=== PATIENT | female | born 1985 | race Caucasian/White ===

== ENCOUNTER 2016-12-13 14:44 | Inpatient (IN) | payer BC ==
[2016-12-13] VITALS (15 sets, daily range): BP systolic 110–134; BP diastolic 69–82; PULSE 64–73; RESP 16–17; TEMP 99.8
[~2016-12-13 14:44] MED LIST: PREN29TA PO
[2016-12-13] MEDS ORDERED: LIDOCAINE HCL 1% 50 ML VIAL ONE (14:48)
[2016-12-13] MEDS ORDERED: DOCUSATE SODIUM 50 MG/SENNA 8.6 MG TAB PO PRN (15:00)
[2016-12-13] MEDS ORDERED: ZOLPIDEM TARTRATE 5 MG TAB PO PRN (15:00)
[2016-12-13] MEDS ORDERED: oxyCODONE/ACETAMINOPHEN 5 MG/325 MG TAB PO PRN (15:00)
[2016-12-13] MEDS ORDERED: WITCH HAZEL 50%/GLYCERIN 12.5% 40 PAD JAR TOPICAL PRN (15:00)
[2016-12-13] MEDS ORDERED: ACETAMINOPHEN 325 MG TAB PO PRN (15:00)
[2016-12-13] MEDS ORDERED: ONDANSETRON ODT 4 MG TAB PO PRN (15:00)
[2016-12-13] MEDS ORDERED: BENZOCAINE 20% TOPICAL SPRAY 60 ML CAN TOPICAL PRN (15:00)
[2016-12-13] MEDS ORDERED: ALUMINUM/MAGNESIUM/SIMETH 30 ML CUP PO PRN (15:00)
--- NOTE | 2016-12-13 15:00 | PD ---
HPI Chief Complaint 'i'm in labor" Date Seen: Dec 13, 2016 Time Seen: 14:30 (Filipe Baltazar MD R2) Travel History International Travel<30 Days: No Contact w/Intl Traveler<30Days: No (Filipe Baltazar MD) History of Present Illness HPI 31 year old G2 (now P2) at 40/3 weeks gestation delivered precipitously in the parking lot in front of the [facility]. Received call from her that she may be delivering at about 1425. OB team rushed to the parking lot with precipitous delivery cart. Mother was laid down in supine position in back of car. Head was presenting with membranes intact. Membranes ruptured artificially. Baby delivered after one push. There was a nuchal cord X1. Baby was delivered through the cord as it could not be reduced. Cord was clamped and cut. Cord blood collected. Baby responded to stimulation and was suctioned. Baby handed to the nursery team who transported baby to the nursery. Mother was transported to the OB floor. Pitocin 10 units IM given just after delivery. No major bleeding present. On OB floor, after 4 mg morphine IM, vaginal canal explored for lacerations. 1st degree laceration noted on posterior vaginal wall. Repaired with 3-0 Vicryl with interrupted sutures X3. Mother's pain now well controlled, vitals stable. Of note, mother is GBS negative with good care and normal labs. Delivery performed by Dr. Johnson, with Dr. Rhoda Orozco and Dr. Baltazar assisting ( Filipe Baltazar MD R2) History Past Medical History Narrative Medical None (Filipe Baltazar MD R2) Obstetric History Obstetric History G2 (now P2) at 40/3 weeks gestation Normal [place] GC/chlamydia negative GBS negative HIV negative RPR nonreactive Hep B negative UA negative Blood type: O neg, antibody negative (Filipe Baltazar MD R2) Past Surgical History Narrative Surgical Breast augmentation January 2012 Tympanostomy tubes age 6 (Filipe Baltazar MD R2) Family History Narrative Family History Mother 56, early onset renal disease requiring transplant, hypertension Father 57, alive and well (Filipe Baltazar MD R2) Social History Narrative Social History , 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 SKIN: Warm and dry. HEAD: Normocephalic and atraumatic. EYES: No scleral icterus. No injection or drainage. ENT: No nasal drainage noted. Mucous membranes pink. Airway patent. NECK: Supple, trachea midline. No JVD. CARDIOVASCULAR: Regular rate and rhythm without murmurs, gallops, or rubs. RESPIRATORY: Breath sounds equal bilaterally. No accessory muscle use. ABDOMEN/GI: Abdomen soft, non-tender, bowel sounds present, no rebound, no guarding GENITOURINARY: 1st degree laceration, repaired by 3-0 Vicryl with 3 interrupted sutures EXTREMITIES: No cyanosis or edema. BACK: Nontender without obvious deformity. No CVA tenderness. NEUROLOGICAL: Awake and alert. (Filipe Baltazar MD R2) Data Data Vital Signs Reviewed: Yes Orders Lidocaine 1% Inj (50 Ml) (Xylocaine 1% I (12/13/16 14:48) Vital Signs (Adult) .QSHIFT (12/13/16 14:55) Activity Oob Ad Yvonne (12/13/16 14:55) Ice / Cold Pack PRN (12/13/16 14:55) ^ Sitz Bath PRN (12/13/16 14:55) ^ Massage (12/13/16 14:55) ^ Rhogam (12/13/16 14:55) Diet Regular Basic (12/13/16 Dinner) Acetaminophen (Tylenol) (12/13/16 15:00) Ibuprofen (Motrin) (12/13/16 15:00) Oxycodone-Acetamin 5-325 Mg (Percocet (12/13/16 15:00) Benzocaine 20% Top Spr (Americaine 20% T (12/13/16 15:00) Witch Ml-Glycerin Pad (Tucks Pads) (12/13/16 15:00) Docusate Sodium-Senna (Lashell-Colace) (12/13/16 15:00) Zolpidem (Ambien) (12/13/16 15:00) Uvanmce-Haodc-Vtmffgb Inj (M-M-R Ii Inj) (12/13/16 16:00) Zivs-Otx-Ihdaay (Booster) Inj (Boostrix (12/13/16 16:00) Al-Mag Hy-Si 40-40-4 Mg/Ml Liq (Mag-Al P (12/13/16 15:00) Ondansetron Odt (Zofran Odt) (12/13/16 15:00) (Filipe Baltazar MD R2) [facility] Medical Record Reviewed: Yes Interpretation(s) 31 year old G2 (now P2) delivered precipitously in parking lot. - Admit to post-. - Monitor vital signs - 2nd degree laceration repaired, ice pack to area for swelling - Monitor for lochia, encourage and bonding - Ibuprofen and Tylenol for pain control - Percocet only if needed - Docusate/Senna for constipation - Ondansetron as needed for nausea/vomiting Delivery performed by Dr. Giovanny Mcdonough and Dr. Rhoda Orozco assisting Case discussed with Dr. Ernesto Mcdonough (Filipe Baltazar MD R2) Attending Attestation Patient seen, examined, discussed with resident team. I agree with documentation. I performed vaginal delivery and first degree laceration repair. (Solange Johnson MD) Filipe Blatazar MD R2 Dec 13, 2016 15:00 Solange Johnson MD Dec 13, 2016 16:12
--- NOTE | 2016-12-13 15:12 | PD.OB.DELI ---
Delivery Date: Dec 13, 2016 Anesthesia: None Episiotomy: None Vaginal Delivery: Precipitous (delivered in parking [facility], precipitously ) Presentation: Occiput anterior, Vertex Nuchal Cord: x1 Delayed cord clamping (45 sec): No : Female One Minute : 9 Five Minute : 9 Weight: 6 lbs 14 oz Care: Suctioned, Responded to stimulation, Attended by scrub nurse, Transferred to nursery (from [facility]) Placenta: Spontaneous delivery, Intact, 3 vessel cord Laceration: 1 deg Repair: Vicryl interrupted (vicryl interrupted x3) Additional Information 31 year old G2 (now P2) delivered precipitously in the parking lot in front of the [facility]. Received call from her that she may be delivering. OB team rushed to the [facility]. Membranes were initially intact, ruptured artificially. Head was presenting. Baby delivered after one push. There was a nuchal cord time one. Baby was delivered through the cord as it could not be reduced. Cord was clamped and cut. Cord blood collected. Baby responded to stimulation and was suctioned. Baby handed to the nursery team who transported baby to the nursery. Mother was transported to the OB floor. Pitocin 10 units IM given just after delivery. No major bleeding present. On OB floor, after 4 mg morphine IM, vaginal canal explored for lacerations. 1st degree laceration noted on posterior vaginal wall. Repaired with 3-0 Vicryl with interrupted sutures X3. Mother's pain now well controlled, vitals stable. EBL 175 mls. (Filipe Baltazar MD R2) Additional Information Attending note: I performed vaginal delivery as documented above. Corrected documentation: Apgars 8 and 9 31yo now 2 at 40 weeks delivered precipitously in the parking lot of the hospital. Pt placed in the backseat of the car. Bulging bag was noted, which was ruptured. Clear fluid noted. Baby delivered immediately after with one push. Cord around the neck x 1 noted. Baby was delivered through the cord as it could not be reduced. Viable infant delivered. Placenta delivered intact. Pitocin provided IM after delivery of placenta. Upon arrival to the floor, perineum inspected and small first degree tear noted. Repair with 3-0 vicryl x 3 interrupted sutures, after patient was provided with morphine 4mg IM x 1. Infant thriving and mother doing well. (Vey,Solange G. MD) Filipe Baltazar MD R2 Dec 13, 2016 15:12 Solange Johnson MD Dec 13, 2016 16:10
[2016-12-13] MEDS ORDERED: MORPHINE SULFATE 4 MG/ML INJ IM ONE (15:15)
[2016-12-13] MEDS ORDERED: MORPHINE SULFATE 8 MG/ML INJ ONE (15:15)
--- NOTE | 2016-12-13 15:29 | HHI.HP ---
History & Physical H&P HPI Chief Complaint 'i'm in labor" Date Seen: Dec 13, 2016 Time Seen: 14:30 Travel History International Travel<30 Days: No Contact w/Intl Traveler<30Days: No History of Present Illness HPI 31 year old G2 (now P2) at 40/3 weeks gestation delivered precipitously in the parking lot in front of the [facility]. Received call from her that she may be delivering at about 1425. OB team rushed to the parking lot with precipitous delivery cart. Mother was laid down in supine position in back of car. Head was presenting with membranes intact. Membranes ruptured artificially. Baby delivered after one push. There was a nuchal cord X1. Baby was delivered through the cord as it could not be reduced. Cord was clamped and cut. Cord blood collected. Baby responded to stimulation and was suctioned. Baby handed to the nursery team who transported baby to the nursery. Mother was transported to the OB floor. Pitocin 10 units IM given just after delivery. No major bleeding present. On OB floor, after 4 mg morphine IM, vaginal canal explored for lacerations. 1st degree laceration noted on posterior vaginal wall. Repaired with 3-0 Vicryl with interrupted sutures X3. Mother's pain now well controlled, vitals stable. Of note, mother is GBS negative with good care and normal labs. Delivery performed by Dr. Johnson, with Dr. Rhoda Orozco and Dr. 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 SKIN: Warm and dry. HEAD: Normocephalic and atraumatic. EYES: No scleral icterus. No injection or drainage. ENT: No nasal drainage noted. Mucous membranes pink. Airway patent. NECK: Supple, trachea midline. No JVD. CARDIOVASCULAR: Regular rate and rhythm without murmurs, gallops, or rubs. RESPIRATORY: Breath sounds equal bilaterally. No accessory muscle use. ABDOMEN/GI: Abdomen soft, non-tender, bowel sounds present, no rebound, no guarding GENITOURINARY: 1st degree laceration, repaired by 3-0 Vicryl with 3 interrupted sutures EXTREMITIES: No cyanosis or edema. BACK: Nontender without obvious deformity. No CVA tenderness. NEUROLOGICAL: Awake and alert. Data Data Vital Signs Reviewed: Yes Orders Lidocaine 1% Inj (50 Ml) (Xylocaine 1% I (12/13/16 14:48) Vital Signs (Adult) .QSHIFT (12/13/16 14:55) Activity Oob Ad Yvonne (12/13/16 14:55) Ice / Cold Pack PRN (12/13/16 14:55) ^ Sitz Bath PRN (12/13/16 14:55) ^ Massage (12/13/16 14:55) ^ Rhogam (12/13/16 14:55) Diet Regular Basic (12/13/16 Dinner) Acetaminophen (Tylenol) (12/13/16 15:00) Ibuprofen (Motrin) (12/13/16 15:00) Oxycodone-Acetamin 5-325 Mg (Percocet (12/13/16 15:00) Benzocaine 20% Top Spr (Americaine 20% T (12/13/16 15:00) Witch Ml-Glycerin Pad (Tucks Pads) (12/13/16 15:00) Docusate Sodium-Senna (Lashell-Colace) (12/13/16 15:00) Zolpidem (Ambien) (12/13/16 15:00) Zndvnmp-Zfgnw-Avpuuym Inj (M-M-R Ii Inj) (12/13/16 16:00) Rmrc-Pcl-Mujzit (Booster) Inj (Boostrix (12/13/16 16:00) Al-Mag Hy-Si 40-40-4 Mg/Ml Liq (Mag-Al P (12/13/16 15:00) Ondansetron Odt (Zofran Odt) (12/13/16 15:00) MDM Medical Record Reviewed: Yes Interpretation(s) 31 year old G2 (now P2) delivered precipitously in parking lot. - Admit to post-. - Monitor vital signs - 2nd degree laceration repaired, ice pack to area for swelling - Monitor for lochia, encourage and bonding - Ibuprofen and Tylenol for pain control - Percocet only if needed - Docusate/Senna for constipation - Ondansetron as needed for nausea/vomiting Delivery performed by Dr. Johnson, Dr. Baltazar and Dr. Rhoda Orozco assisting Case discussed with Dr. Johnson, Dr. Orozco (Filipe Baltazar MD R2) H&P Attending note: Patient seen, examined, discussed with resident team. I agree with documentation. I performed vaginal delivery and first degree laceration repair. (Solange Johnson MD) Filipe Baltazar MD R2 Dec 13, 2016 15:29 Solange Johnson MD Dec 13, 2016 16:13
[2016-12-13] MEDS ORDERED: OXYTOCIN 10 UNIT/ML AMP IM ONE (15:30)
[2016-12-13] MEDS: IBUPROFEN 600 MG TAB PO PRN ×2 (15:33→22:32)
[2016-12-13] MEDS ORDERED: DIPHTH/TETANUS/ACEL PERTUSSIS (BOOSTER) 0.5 ML VIAL/PFS IM ONE (16:00)
[2016-12-13] MEDS ORDERED: MEASLES, MUMPS, RUBELLA VACCINE 0.5 ML VIAL SQ ONE (16:00)
[2016-12-13 16:09] LABS: AUTOMATED NEUTROPHIL # 12.8 TH/MM3 (1.8-7.7); BASOPHIL % 0.2 % (0.0-2.0); EOSINOPHIL % 0.1 % (0.0-4.0); HEMATOCRIT 39.1 % (35.0-46.0); HEMO FLAGS DIFF FINAL; LYMPH % 7.7 % (9.0-44.0); LYMPHOCYTE # 1.1 TH/MM3 (1.0-4.8); MEAN CELL VOLUME 95.7 FL (80.0-100.0); MEAN CORPUSCULAR HEMOGLOBIN 32.8 PG (27.0-34.0); MEAN CORPUSCULAR HGB CONC 34.2 % (32.0-36.0); MONO % 2.7 % (0.0-8.0); NEUT % 89.3 % (16.0-70.0); PLATELET COUNT 276 TH/MM3 (150-450); RED BLOOD COUNT 4.09 MIL/MM3 (4.00-5.30); RED CELL DISTRIBUTION WIDTH 12.7 % (11.6-17.2); WHITE BLOOD COUNT 14.3 TH/MM3 (4.0-11.0)
[2016-12-13] MEDS ORDERED: LACTATED RINGER'S 1000 ML INJ 1,000 ML IV ONE (17:00)
[2016-12-13] MEDS ORDERED: OXYTOCIN 30 UNITS-500ML PREMIX 500 ML IV ONE (17:00)
[2016-12-13] MEDS ORDERED: MISOPROSTOL 100 MCG TAB ONE (17:00)
[2016-12-13] MEDS ORDERED: OXYTOCIN 30 UNITS-500ML PREMIX 500 ML ONE (17:00)
[2016-12-13] MEDS ORDERED: MISOPROSTOL 200 MCG TAB PR ONE (17:00)
[2016-12-13] MEDS ORDERED: MORPHINE SULFATE 4 MG/ML INJ IV PUSH PRN (17:00)
[2016-12-13] MEDS ORDERED: METHYLERGONOVINE MALEATE 0.2 MG/ML VIAL ONE (17:02)
[2016-12-13] MEDS ORDERED: METHYLERGONOVINE MALEATE 0.2 MG/ML VIAL IM ONE (17:15)
[2016-12-13] MEDS ORDERED: MORPHINE SULFATE 4 MG/ML INJ IV PUSH ONE (17:30)
--- NOTE | 2016-12-13 17:32 | HHI.PR ---
Addendum to Inpatient Note Addendum Reason: Additional Documentation Additional Information Patient was reevaluated due to hemorrhage and vaginal clots. Patient briefly is a 31-year-old G2 P now 2 who presented with precipitous delivery of 6 lbs. 14 oz. . No consultations, GBS negative. Delivery was complicated by superficial/first-degree lacerations of the posterior vaginal wall, repaired by 3 interrupted Vicryl sutures. At initial exam, uterus was firm and no active bleeding was noted, only some oozing from cervix within normal limits. At approximately 5:15 PM, patient had continued clot removal from vagina, patient was reevaluated and noted to have larger uterus than prior exam showed. On manual exam, clot size of golf ball evacuated from the uterus. No lacerations or bleeding noted on the cervix or vaginal mucosa. Large golf ball sized clot was manually evacuated from the uterus using fundal massage. Patient received Cytotec 800 g per rectum, Methergine 0.2 mg IM, and Pitocin ( 30 units/500 mL premix). After 510 minutes of uterine massage, no active bleeding noted from vagina. Plan: Continue uterine massage to maintain firm uterus Monitor for active bleeding CBC ordered at admission (@1530) showing H&H of 13/39, platelets 276 Repeat CBC ordered for 2000 tonight If she continues to have bleeding, will proceed with Hemabate, possible OR for exploration Of note, mom is Rh-, baby is Rh+, Rhogam studies ordered Patient was seen and discussed with Drs. Johnson, Dr. Baltazar, Dr. Rogers (Rhoda Orozco MD R1) Addendum Reason: Additional Documentation Additional Information Attending note: Patient seen, examined, and discussed with Richmond Orozco, Filipe Baltazar, and Ken. I agree with assessment and management as documented and discussed with me. Pt with hemorrhage. Pt provided methergine, cytotec, and pitocin. Cervix and vagina reexamined, and there were no other lacerations noted other than previously repaired first degree tear. No bleeding noted from first degree tear. Monitor vitals, H/H. Pt instructed to not get out of bed unassisted as she is at risk of falls until hemorrhage stops. (Solange Johnson MD) Rhoda Orozco MD R1 Dec 13, 2016 17:32 Solange Johnson MD Dec 14, 2016 06:40
[2016-12-13 17:59] LABS: AUTOMATED NEUTROPHIL # 15.8 TH/MM3 (1.8-7.7); BASOPHIL % 0.2 % (0.0-2.0); HEMATOCRIT 39.8 % (35.0-46.0); HEMO FLAGS DIFF FINAL; LYMPH % 6.7 % (9.0-44.0); LYMPHOCYTE # 1.2 TH/MM3 (1.0-4.8); MEAN CELL VOLUME 96.1 FL (80.0-100.0); MEAN CORPUSCULAR HEMOGLOBIN 32.5 PG (27.0-34.0); MEAN CORPUSCULAR HGB CONC 33.9 % (32.0-36.0); MONO % 3.1 % (0.0-8.0); PLATELET COUNT 296 TH/MM3 (150-450); RED BLOOD COUNT 4.14 MIL/MM3 (4.00-5.30); RED CELL DISTRIBUTION WIDTH 12.7 % (11.6-17.2); WHITE BLOOD COUNT 17.6 TH/MM3 (4.0-11.0)
[2016-12-13] MEDS: LACTATED RINGER'S 1000 ML INJ 1,000 ML IV SCH (18:09)
[2016-12-13 21:28] LABS: BLOOD, URINE LARGE (NEG); COMMENT (UR) CULTURE INDICATED; CULTURE IF INDICATED CULTURE INDICATED; GLUCOSE,URINE NEG (NEG); KETONE, URINE NEG (NEG); NITRITE,URINE NEG (NEG)
[2016-12-13 21:30] LABS: URINE COLOR LIGHT-RED (YELLW/STRAW)
[2016-12-13 22:03] LABS: AUTOMATED NEUTROPHIL # 13.7 TH/MM3 (1.8-7.7); BASOPHIL # 0.1 TH/MM3 (0-0.2); BASOPHIL % 0.3 % (0.0-2.0); EOSINOPHIL % 0.1 % (0.0-4.0); HEMATOCRIT 32.7 % (35.0-46.0); HEMO FLAGS DIFF FINAL; LYMPH % 12.4 % (9.0-44.0); MEAN CELL VOLUME 95.1 FL (80.0-100.0); MEAN CORPUSCULAR HEMOGLOBIN 32.9 PG (27.0-34.0); MEAN CORPUSCULAR HGB CONC 34.5 % (32.0-36.0); NEUT % 83.2 % (16.0-70.0); PLATELET COUNT 248 TH/MM3 (150-450); RED BLOOD COUNT 3.43 MIL/MM3 (4.00-5.30); RED CELL DISTRIBUTION WIDTH 12.7 % (11.6-17.2); WHITE BLOOD COUNT 16.4 TH/MM3 (4.0-11.0)
[2016-12-14] MEDS: LACTATED RINGER'S 1000 ML INJ 1,000 ML IV SCH (03:09)
[2016-12-14] MEDS: IBUPROFEN 600 MG TAB PO PRN ×3 (05:33→19:17)
[2016-12-14] MEDS ORDERED: IBUP-232 PO (07:01)
--- NOTE | 2016-12-14 07:17 | HHI.OB ---
Subjective Post Day: 1 Remarks day # 1, status post precipitous vaginal delivery, complicated by hemorrhage which has resolved. AFVSS overnight. Decreased lochia at this time, "much better" than yesterday. Denies dysuria, has been able to urinate without difficulty. No breast tenderness. She is feeding the baby via breast. She has named her Mary Lala. Appetite good, tolerating regular diet. No nausea or vomiting. No bowel movement yet. Ambulating well, without dizziness or shortness of breath. Denies calf pain. She is doing well this morning and has no concerns. (Rhoda Orozco MD R1) Objective Vitals/I&O Vital Signs Date Time Temp Pulse Resp B/P Pulse Ox O2 Delivery O2 Flow Rate FiO2 12/13/16 18:10 17 12/13/16 18:01 64 125/76 12/13/16 17:46 71 134/76 12/13/16 17:40 17 12/13/16 17:30 66 133/82 12/13/16 17:10 64 110/69 12/13/16 16:31 72 121/74 12/13/16 16:30 17 12/13/16 15:40 17 12/13/16 15:39 99.8 12/13/16 15:37 72 125/73 12/13/16 15:25 16 12/13/16 15:10 17 12/13/16 15:00 72 12/13/16 14:43 73 132/76 Other Results Rhogham ordered, not yet administered Objective Remarks GENERAL: Well-nourished, well-developed female bonding with baby in bed. In no apparent distress. CARDIOVASCULAR: Regular rate and rhythm without murmurs, gallops, or rubs. RESPIRATORY: Breath sounds equal bilaterally. No accessory muscle use. ABDOMEN/GI: Abdomen soft, non-tender. Wearing abdominal binder. Fundus: Firm, non-tender at umbilicus. No ecchymoses or lesions. GENITOURINARY: Light to moderate bleeding. EXTREMITIES: No cyanosis or edema, non-tender, without signs of DVT. Medications and IVs Current Medications Medications (Trade) Dose Ordered Sig/Dawn Route Start Time Stop Time Status Last Admin (Tylenol) 650 mg Q4H PRN PO 12/13/16 15:00 (Motrin) 600 mg Q6H PRN PO 12/13/16 15:00 12/14/16 05:33 (Percocet 5-325 Mg) 1 tab Q4H PRN PO 12/13/16 15:00 12/13/16 15:32 (Americaine 20% Top Spr) 1 spray Q4H PRN TOPICAL 12/13/16 15:00 12/13/16 22:32 (Tucks Pads) 1 applic QID PRN TOPICAL 12/13/16 15:00 12/13/16 22:33 (Lashell-Colace) 2 tab Q12H PRN PO 12/13/16 15:00 (Ambien) 5 mg HS PRN PO 12/13/16 15:00 (Mag-Al Plus Susp Liq) 15 ml Q8H PRN PO 12/13/16 15:00 Ondansetron HCl 4 mg 4 mg Q6H PRN PO 12/13/16 15:00 (Lr 1000 ml Inj) 1,000 ml @ 100 mls/hr Q10H IV 12/13/16 18:00 12/13/16 18:09 (Rhoda Orozco MD R1) Assessment/Plan Problem List: (1) Rh negative, delivered, current hospitalization (2) hemorrhage (3) Precipitous delivery, delivered (current hospitalization) (4) Term delivered vaginally, current hospitalization Assessment and Plan 31 y/o female who is PPD# 1 s/p precipitous vaginal delivery of well . Post- hemorrhage occurring approximately 2 hours after delivery, resolved with administration of uterotonics, clot evacuation, and fundal massage. H/H 11.3/32.7, decreased from previous but wnl and patient asymptomatic. Plan: -Continue routine care. -Counseled on iron-rich diet and fluid intake -Needs Rhogam -Motrin PRN pain. -Encouraged OOB. Advised pelvic rest for 6 wks. -Will follow-up with Dr. Florinda Lewis - control not discussed -Anticipate discharge tomorrow wdw Dr. Johnson, escobar Baltazar Discharge Planning Discharge likely tomorrow (Rhoda Orozco MD R1) Attending Attestation Attending note: Patient seen, examined, and discussed with resident team. I agree with assessment and management as documented and discussed with me. Pt without complaints today. She denies abdominal pain, SOB, calf tenderness. Light/scant vaginal bleeding. Pt undecided about control, but is considering IUD. She would like to go home. On exam, small amount of blood on pad. No clots. Fundus firm, -1. Discharge today or tomorrow, pending discharge of infant. (Solange Johnson MD) Rhoda Orozco MD R1 Dec 14, 2016 07:17 Solange Johnson MD Dec 14, 2016 08:19
[2016-12-14] MEDS ORDERED: COLA100C3 PO (08:21)
[2016-12-14] MEDS ORDERED: PERC5TAB12 PO (08:21)
--- NOTE | 2016-12-14 08:22 | HHI.DCPOC ---
Discharge Care Plan Diagnosis: (1) Precipitous delivery, delivered (current hospitalization) (2) hemorrhage Goals to Promote Your Health * To prevent worsening of your condition and complications * To maintain your health at the optimal level Directions to Meet Your Goals Take your medications as prescribed Follow your dietary instruction Follow activity as directed Keep your appointments as scheduled Take your immunizations and boosters as scheduled If your symptoms worsen call your PCP, if no PCP go to Urgent Care Center or Emergency Room Smoking is Dangerous to Your Health. Avoid second hand smoke Call the 24-hour hour crisis hotline for domestic abuse at Solange Johnson MD Dec 14, 2016 08:22
[2016-12-14 11:30] VITALS: BP 122/75; PULSE 62; RESP 18; TEMP 98.5
[2016-12-14 20:41] VITALS: BP 111/61; PULSE 56; RESP 17; TEMP 97.6
[2016-12-15] MEDS: IBUPROFEN 600 MG TAB PO PRN ×2 (01:45→09:10)
[2016-12-15] MEDS ORDERED: COLA100C3 PO (07:18)
--- NOTE | 2016-12-15 07:42 | HHI.OB ---
Subjective Remarks 31 year old PPD 2 after precipitous delivery complicated by mild post- hemorrhage. This morning patient is doing very well. She is ambulating. She has good appetite. She has minimal lochia. Pain is well controlled with ibuprofen. She is . She plans to follow with Dr. Lewis for post- care. (Filipe Baltazar MD R2) Objective Vitals/I&O Vital Signs Date Time Temp Pulse Resp B/P Pulse Ox O2 Delivery O2 Flow Rate FiO2 12/14/16 20:41 97.6 56 17 111/61 12/14/16 11:30 62 122/75 12/14/16 11:30 98.5 18 Other Results Rhogham ordered, not yet administered Objective Remarks GENERAL: Well-nourished, well-developed female bonding with baby in bed. In no apparent distress. CARDIOVASCULAR: Regular rate and rhythm without murmurs, gallops, or rubs. RESPIRATORY: Breath sounds equal bilaterally. No accessory muscle use. ABDOMEN/GI: Abdomen soft, non-tender. Wearing abdominal binder. Fundus: Firm, non-tender at umbilicus. No ecchymoses or lesions. GENITOURINARY: Light to moderate bleeding. EXTREMITIES: No cyanosis or edema, non-tender, without signs of DVT. Medications and IVs Current Medications Medications (Trade) Dose Ordered Sig/Dawn Route Start Time Stop Time Status Last Admin (Tylenol) 650 mg Q4H PRN PO 12/13/16 15:00 (Motrin) 600 mg Q6H PRN PO 12/13/16 15:00 12/15/16 01:45 (Percocet 5-325 Mg) 1 tab Q4H PRN PO 12/13/16 15:00 12/13/16 15:32 (Americaine 20% Top Spr) 1 spray Q4H PRN TOPICAL 12/13/16 15:00 12/13/16 22:32 (Tucks Pads) 1 applic QID PRN TOPICAL 12/13/16 15:00 12/13/16 22:33 (Lashell-Colace) 2 tab Q12H PRN PO 12/13/16 15:00 12/14/16 19:17 (Ambien) 5 mg HS PRN PO 12/13/16 15:00 (Mag-Al Plus Susp Liq) 15 ml Q8H PRN PO 12/13/16 15:00 Ondansetron HCl 4 mg 4 mg Q6H PRN PO 12/13/16 15:00 (Lr 1000 ml Inj) 1,000 ml @ 100 mls/hr Q10H IV 12/13/16 18:00 12/13/16 18:09 (Filipe Baltazar MD R2) Assessment/Plan Problem List: (1) Rh negative, delivered, current hospitalization (2) hemorrhage (3) Precipitous delivery, delivered (current hospitalization) (4) Term delivered vaginally, current hospitalization Assessment and Plan 31 y/o female who is PPD# 2 s/p precipitous vaginal delivery of well . Mild post- hemorrhage occurred approximately 2 hours after delivery, resolved with administration of uterotonics, clot evacuation, and fundal massage. Hgb 11.3, decreased from 13.6, after post- hemorrhage, remained asymptomatic. Plan: -Continue routine care. -Counseled on iron-rich diet and fluid intake -Received Rhogam for Rh negative status with Rh+ baby -Motrin PRN pain. -Encouraged OOB. Advised pelvic rest for 6 wks. - Encourage exclusive - Plans of IUD for control. -Will follow-up with Dr. Florinda Lewis -Anticipate discharge today Discussed with Dr. Johnson Discharge Planning Discharge likely tomorrow (Filipe Baltazar MD R2) Assessment and Plan Patient seen, examined, and discussed with Dr Sanjana Baltazar. I agree with assessment and management as documented and discussed with me. Pt without complaints. Bleeding light, minimal lochia. She feels ready for discharge. (Solange Johnson MD) Filipe Baltazar MD R2 Dec 15, 2016 07:42 Solange Johnson MD Dec 15, 2016 13:09
[2016-12-15 09:00] VITALS: BP 117/75; PULSE 75; RESP 16; TEMP 97.8
== END 2016-12-15 11:16 | disposition home or self-care (01) | DRG 774 ==
LOC: H2EA 14:44 → H1EA 18:15
PROVIDERS: ADMIT Family Medicine; ATTEND Family Medicine
PROC: 10E0XZZ Delivery of Products of Conception, External Approach (ICD-10-PCS; principal; 2016-12-13)
PROC: 0HQ9XZZ Repair Perineum Skin, External Approach (ICD-10-PCS; 2016-12-13)
DX: O62.3 Precipitate labor (principal); O72.1 Other immediate postpartum hemorrhage; O70.0 First degree perineal laceration during delivery; Z3A.40 40 weeks gestation of pregnancy; Z37.0 Single live birth; O69.81X0 Labor and delivery complicated by cord around neck, without compression, not applicable or unspecified
CPT/HCPCS: 81001; 85025; 85461; 86850; 86900; 86901; 87086; 90384; J2210; J2270; J2590; J2790; J7120